=== PATIENT | male | born 1985 | race Hispanic/Latino ===

== ENCOUNTER 2018-04-07 16:43 | Emergency (ER) | payer SELFPAY ==
[2018-04-07 16:53] VITALS: BMI 25.7
[2018-04-07 16:56] VITALS: RESP 18; TEMP 98; O2SAT 98
[2018-04-07 17:30] VITALS: BP 123/69; PULSE 69
--- NOTE | 2018-04-07 17:39 | C.PDOC ---
History Of Present Illness 32 year old male with no known psychiatric history was brought in by EMS for erratic and aggressive behavior during his doctors office visit today. Per patient he was overcharged and demands to speak with a [employer] worker helper or federal agents. Denies homicidal and suicidal ideations. Time Seen by Provider: 04/07/18 17:08 Chief Complaint (Nursing): Medical Clearance History Per: Patient History/Exam Limitations: no limitations Onset/Duration Of Symptoms: Hrs Current Symptoms Are (Timing): Still Present Reports Recently: Seen In ED Past Medical History Reviewed: Historical Data, Nursing Documentation, Vital Signs Vital Signs: Last Vital Signs Temp 98 F 04/07/18 17:29 Pulse 69 04/07/18 17:29 Resp 18 04/07/18 17:29 BP 123/69 04/07/18 17:29 Pulse Ox 98 04/07/18 17:29 Family History: States: Unknown Family Hx - Social History Hx Alcohol Use: Yes Hx Substance Use: Yes - Immunization History Hx Tetanus Toxoid Vaccination: No Hx Influenza Vaccination: No Hx Pneumococcal Vaccination: No Review Of Systems Review Of Systems: ROS cannot be obtained secondary to pt's inabilty to answer questions. Psych: Positive for: Other (aggressive ) Physical Exam - Physical Exam Skin: Normal Color Neck: Normal ROM Extremity: Normal ROM (x4) Neurological/Psych: Other (aggressive ) Gait: Steady Additional Physical Exam Comments: Limited Physical Exam due to patient's aggressive condition. ED Course And Treatment O2 Sat by Pulse Oximetry: 98 (RA) Pulse Ox Interpretation: Normal Medical Decision Making Medical Decision Making: Update/Progress: 5:12pm: Spoke with patients doctor, Dr. Madhav Pascal to verify details. Dr. Pascal reports that the patient is generally well controlled, treated and prescribed Suboxone for opioid addiction. Dr. Pascal reports the patient became aggressive during his visit prompting EMS to be called. Patient demands to be released. Patient eloped before further evaluation. Disposition - Disposition Disposition: HOME/ ROUTINE Disposition Time: 14:47 Condition: GUARDED Forms: [facility] ([place]) - Clinical Impression Clinical Impression: Emotional disorder - Scribe Statement The provider has reviewed the documentation as recorded by the Scribe (Jes La) Provider Attestation: All medical record entries made by the Scribe were at my direction and personally dictated by me. I have reviewed the chart and agree that the record accurately reflects my personal performance of the history, physical exam, medical decision making, and the department course for this patient. I have also personally directed, reviewed, and agree with the discharge instructions and disposition.
== END 2018-04-07 18:08 | disposition home or self-care (01) ==
LOC: C.ER 16:43
DX: F34.9 Persistent mood [affective] disorder, unspecified (principal)